=== PATIENT | female | born 1945 | race Caucasian/White ===

== ENCOUNTER 2016-09-05 15:24 | Inpatient (IN) | payer OTHER, MEDICARE ==
[~2016-09-05] VITALS: Ht 160 cm; Wt 71.5 kg
[2016-09-05] MEDS ORDERED: SODIUM CHLORIDE 0.9% 500 ML IVB ONE (15:45)
[2016-09-05 16:09] LABS: Basophils # (auto) 0 uL; Basophils % (auto) 0.3 % (0.0-2.0); CONDITION Y; DEFINITIVE SEE PRINTOUT; Eosinophils # (auto) 0.3 uL; Eosinophils % (auto) 5.5 % (0.0-7.0); Hematocrit 27.3 % (36.0-46.0); Hemoglobin 9.6 g/dL (12.2-16.2); Lymphocytes # (auto) 0.7 uL; Mean Corpuscular Hemoglobin 36.3 pg (28.0-32.0); Mean Corpuscular Hgb Conc. 35.2 g/dL (32.0-36.0); Mean Corpuscular Volume 103.4 fL (80.0-100.0); Monocytes # (auto) 0.5 uL; Monocytes % (auto) 9.8 % (0.0-12.0); Neutrophils # (auto) 3.7 uL; Neutrophils % (auto) 70.4 % (37.0-80.0); Platelet Count (auto) 151 10^3/uL (140-450); White Blood Cell 5.2 10^3/uL (4.4-10.8)
[2016-09-05 16:25] LABS: Albumin 3.4 g/dL (3.4-5.0); Alkaline Phosphatase 86 U/L (45-117); Anion Gap 12 (5-15); Aspartate Aminotransferase 24 U/L (15-37); BUN/Creatinine Ratio 22.8; Bilirubin, Total 0.5 mg/dL (0.2-1.0); Blood Urea Nitrogen 21 mg/dL (7-18); Carbon Dioxide 21 mmol/L (21-32); Chloride 104 mmol/L (98-107); GFR African American 77 mL/min; GFR Non-African American 64 mL/min; Glucose 85 mg/dL (74-106); Magnesium 1.9 mg/dL (1.6-2.6); Potassium 3.3 mmol/L (3.5-5.1); Sodium 137 mmol/L (136-145); Total Protein 7.2 g/dL (6.4-8.2)
[2016-09-05] MEDS: SODIUM CHLORIDE 0.9% 1,000 ML IV SCH (17:09)
[2016-09-05] MEDS ORDERED: ASPirin 81 mg TAB PO ONE (17:15)
[2016-09-05] MEDS ORDERED: POTASSIUM CHL 20 Meq TABLET PO ONE (17:15)
[2016-09-05 17:57] LABS: Anisocytosis Slight; Macrocytosis Slight; Platelet Estimate Adequate
[2016-09-05] MEDS ORDERED: ATORVASTATIN 20 MG TAB PO SCH (22:00)
[2016-09-05 23:03] VITALS: BP 128/54
[2016-09-06] VITALS (7 sets, daily range): BP systolic 115–136; BP diastolic 47–103
[2016-09-06] MEDS ORDERED: LOP2C PO (00:21)
[2016-09-06] MEDS ORDERED: DIA5T PO (00:23)
[2016-09-06] MEDS ORDERED: TRAM50TA2 PO (00:23)
[2016-09-06 01:07] LABS: Urine RBC None Seen /hpf (0 - 4)
[2016-09-06 01:13] LABS: Urine Bilirubin Negative (Negative); Urine Blood Negative /uL (Negative); Urine Color Colorless (Yellow); Urine Glucose Normal (Normal); Urine Ketone Negative (Negative); Urine Nitrite Negative (Negative); Urine Urobilinogen Normal (Negative)
[2016-09-06] MEDS: SODIUM CHLORIDE 0.9% 1,000 ML IV SCH ×2 (03:40→14:18)
[2016-09-06 06:19] LABS: Basophils # (auto) 0 uL; Basophils % (auto) 0.2 % (0.0-2.0); CONDITION Y; DEFINITIVE SEE PRINTOUT; Eosinophils # (auto) 0.4 uL; Eosinophils % (auto) 9.2 % (0.0-7.0); Hematocrit 24.8 % (36.0-46.0); Hemoglobin 8.7 g/dL (12.2-16.2); Lymphocytes # (auto) 0.8 uL; Lymphocytes % (auto) 16.9 % (10.0-50.0); Mean Corpuscular Hemoglobin 36.3 pg (28.0-32.0); Mean Corpuscular Hgb Conc. 35.1 g/dL (32.0-36.0); Mean Corpuscular Volume 103.4 fL (80.0-100.0); Mean Platelet Volume 7.1 fL (7.4-10.4); Monocytes # (auto) 0.6 uL; Monocytes % (auto) 12.8 % (0.0-12.0); Neutrophils # (auto) 2.9 uL; Neutrophils % (auto) 60.9 % (37.0-80.0); Platelet Count (auto) 132 10^3/uL (140-450); White Blood Cell 4.7 10^3/uL (4.4-10.8)
[2016-09-06 06:21] LABS: BUN/Creatinine Ratio 20.6; Potassium 4.2 mmol/L (3.5-5.1)
[2016-09-06 08:52] LABS: Anisocytosis Moderate; Macrocytosis Slight; Platelet Estimate Decreased
[2016-09-06] MEDS ORDERED: ASPirin 81 mg TAB PO SCH (10:00)
[2016-09-06] MEDS ORDERED: traMADol HCL 50 MG TAB PO PRN (10:30)
[2016-09-06] MEDS ORDERED: LOPERAMIDE 2 MG/10ml ORAL soln PO PRN (10:30)
[2016-09-06] MEDS ORDERED: DIAZEPAM 5 MG TAB PO PRN (10:30)
[2016-09-06] MEDS ORDERED: cefTRIAXone 1GM/50ML D5W 50 ML IV ONE (11:15)
[2016-09-06] MEDS ORDERED: CIPR-217 PO (12:25)
[2016-09-06] MEDS ORDERED: FUROSEMIDE 20 MG/2 ML VIAL IV ONE (12:30)
[2016-09-06] MEDS ORDERED: FAMOTIDINE 20 MG TAB PO SCH (22:00)
[2016-09-07] MEDS ORDERED: cefTRIAXone 1GM/50ML D5W 50 ML IV SCH (09:00)
== END 2016-09-06 19:40 | disposition left against medical advice (07) | DRG 948 ==
LOC: EDBD 15:24 → ER 15:27 → OVERFLOW 15:28 → WEST WING 18:21
PROVIDERS: ADMIT Internal Medicine; ATTEND Internal Medicine
PROC: 30233N1 Transfusion of Nonautologous Red Blood Cells into Peripheral Vein, Percutaneous Approach (ICD-10-PCS; principal; 2016-09-06)
DX: R41.82 Altered mental status, unspecified (principal); E11.9 Type 2 diabetes mellitus without complications; Z90.710 Acquired absence of both cervix and uterus; Z85.9 Personal history of malignant neoplasm, unspecified
CPT/HCPCS: 36415; 70450; 71010; 80048; 80053; 80320; 81001; 82962; 83735; 84484; 85025; 86850; 86900; 86901; 86920; 87086; 93005; 93306; 93886; 96360